=== PATIENT | female | born 1970 | race Caucasian/White ===

== ENCOUNTER → 2018-05-03 | Outpatient (CLI) | payer BC ==
--- NOTE | 2018-05-03 15:06 | PCVCIMAG ---
APPROVED REPORT Study performed: 05/03/2018 10:30:09 Exam: Stress Echocardiogram Indication: Palpitations , Cardiomyopathy, PVCs Patient Location: Echo lab Stress Nurse: Lorelei Gamboa RN Status: routine Ht: 5 ft 5 in HR: 79 bpm BP: 130/70 mmHg Rhythm: NSR Procedure The patient underwent an Exercise Stress Test using the Jose Protocol. Blood pressure, heart rate, and EKG were monitored. An Echocardiogram was performed by configuration technician in four stages in quad fashion. At peak stress, four selected images were obtained and placed side by side with resting images for comparison. Stress Test Details Stress Test: Exercise stress testing was performed using a Jose protocol. HR Resting HR: 79 bpmMax Heart Rate (APMHR): 173 bpm Max HR Achieved: 187 bpmTarget HR (85% APMHR): 147 bpm % of APMHR: 108 Recovery HR: 111 bpm HR response to stress: Normal HR response to stress BP Resting BP: 130/70 mmHg Max BP: 162/78 mmHg Recovery BP: 120/70 mmHg ECG Resting ECG: Sinus Rhythm Stress ECG: Sinus Rhythm ST Change: Normal Arrhythmia: None Recovery ECG: Sinus Rhythm Recovery ST Change: Normal Recovery Arrhythmia: None Clinical Reason for Termination: Maximal effort Stress Symptoms: Dyspnea Exercise duration: 10 min 5 sec Highest Stage Achieved: Stage 4: 4.2 mph at 16% grade. Exercise capacity: 13.4 METs Overall Exercise Capacity for Age: Good Angina Score: None Pre-Stress Echo The resting Echocardiogram showed normal left ventricular contractility with an estimated Ejection Fraction of about 45%. EF globally mildly decreased at rest. Post-Stress Echo The stress Echocardiogram showed normal left ventricular contractility with an estimated Ejection Fraction of about 50-55%. Normal augmentation of wall motion in all segments on post stress images. Clinical No clinical or ECG evidence for ischemia. Conclusion Clinical Response: Non-ischemic Exercise Capacity: Average Stress ECG Response: Non-ischemic Stress Echo Images: Non-ischemic The left ventricle is normal in size and wall thickness in both the rest and stress images. Other Information Study Quality: Adequate <Conclusion> The left ventricle is normal in size and wall thickness in both the rest and stress images.
== END | disposition home or self-care (01) ==
LOC: PCVCIMAG 14:59
PROVIDERS: ATTEND Internal Medicine Cardiovascular Disease
DX: I49.3 Ventricular premature depolarization (principal); R00.2 Palpitations
CPT/HCPCS: 93325; 93351